=== PATIENT | female | born 1985 | race Hispanic/Latino ===

== ENCOUNTER 2018-01-27 00:20 | Inpatient (IN) | payer OTHER ==
[2018-01-27] VITALS (11 sets, daily range): BP systolic 77–100; BP diastolic 34–73
[~2018-01-27] VITALS: Ht 152.4 cm; Wt 77.8 kg
[~2018-01-27 00:20] MED LIST: MOTRIN600 MG PO; SKELAXIN800 MG PO
[2018-01-27 01:10] LABS: BASOPHIL (%) 0.1 % (0-1); EOSINOPHIL (%) 1.1 % (0-5); EOSINOPHIL COUNT 0.1 K/uL (0-0.3); HEMATOCRIT 27.3 % (36.0-46.0); IMMATURE GRANULOCYTE (%) 0.4 % (0.0-0.7); LYMPHOCYTE COUNT 4.5 K/uL (1.0-2.8); MCH 29.8 PG (29.0-34.0); MCHC 34.4 G/DL (30.0-36.0); MCV 86.7 FL (83-99); MONOCYTE (%) 6.2 % (3-12); MONOCYTE COUNT 0.7 K/uL (0-0.8); NEUTROPHIL (%) 51.2 % (45-76); NEUTROPHIL COUNT 5.7 K/uL (1.8-6.4); PLATELET COUNT 202 K/uL (156-360); WHITE BLOOD COUNT 11.1 K/uL (4.1-10.2)
[2018-01-27 01:12] LABS: HEMOGLOBIN 9.4 G/DL (11.9-15.5); RED BLOOD COUNT 3.15 M/uL (3.80-5.20)
[2018-01-27 01:16] LABS: INTER. NORMALIZED RATIO 1.1
[2018-01-27 01:22] LABS: CHLORIDE 108 mEq/L (99-109); POTASSIUM 3.7 mEq/L (3.7-5.4); SODIUM 138 mEq/L (136-147)
[2018-01-27 01:23] LABS: GLUCOSE 119 mg/dL (70-99)
[2018-01-27 01:27] LABS: CREATININE 0.6 mg/dL (0.6-1.3); GFR ESTIMATE (CALCULATED) > 59 mL/min/
[2018-01-27 01:28] LABS: UREA NITROGEN (BUN) 9 mg/dL (9-23)
[2018-01-27 01:32] LABS: TROP-I INTERPRETATION NEGATIVE; TROPONIN-I < 0.01 ng/mL (0.0-0.30)
[2018-01-27 03:08] LABS: APPEARANCE SL.HAZY ((CLEAR)); BILIRUBIN NEGATIVE; BLOOD MODERATE; COLOR RED ((YELLOW)); GLUCOSE (STRIP) 50; KETONES NEGATIVE; LEUKOCYTES MODERATE; NITRITE NEGATIVE; PROTEIN (STRIP) 100; SPECIFIC GRAVITY 1.006 (1.000-1.030); UROBILINOGEN 0.2 MG/DL (0.2-1.0)
[2018-01-27 03:20] LABS: EPITHELIAL CELLS NONE SEEN /HPF; MUCUS NONE SEEN /LPF; RED BLOOD CELLS TNTC /HPF (0-5)
[2018-01-27 03:21] LABS: BACTERIA NONE SEEN /HPF; UCUL ADDED? YES
[2018-01-27 03:27] LABS: BASOPHIL (%) 0.2 % (0-1); EOSINOPHIL (%) 0.3 % (0-5); HEMATOCRIT 24.5 % (36.0-46.0); HEMOGLOBIN 8.4 G/DL (11.9-15.5); IMMATURE GRANULOCYTE (%) 0.4 % (0.0-0.7); LYMPHOCYTE (%) 25.4 % (15-42); LYMPHOCYTE COUNT 3.3 K/uL (1.0-2.8); MCH 29.6 PG (29.0-34.0); MCHC 34.3 G/DL (30.0-36.0); MCV 86.3 FL (83-99); MONOCYTE (%) 3.5 % (3-12); MONOCYTE COUNT 0.5 K/uL (0-0.8); NEUTROPHIL (%) 70.2 % (45-76); PLATELET COUNT 192 K/uL (156-360); RED BLOOD COUNT 2.84 M/uL (3.80-5.20); WHITE BLOOD COUNT 12.9 K/uL (4.1-10.2)
[2018-01-27] MEDS ORDERED: MOTRIN IB200 MG PO (07:23)
[2018-01-27 11:37] LABS: HEMATOCRIT 27.6 % (36.0-46.0); HEMOGLOBIN 9.4 G/DL (11.9-15.5); MCH 29.7 PG (29.0-34.0); MCHC 34.1 G/DL (30.0-36.0); MCV 87.1 FL (83-99); PLATELET COUNT 168 K/uL (156-360); RBC DIS.WIDTH-CV 13.6 % (11.8-14.6); RBC DIS.WIDTH-SD 43.5 % (39-53); RED BLOOD COUNT 3.17 M/uL (3.80-5.20); WHITE BLOOD COUNT 8.8 K/uL (4.1-10.2)
[2018-01-28] VITALS (13 sets, daily range): BP systolic 82–99; BP diastolic 41–57
[2018-01-28 00:23] LABS: HEMATOCRIT 21.6 % (36.0-46.0); HEMOGLOBIN 7.6 G/DL (11.9-15.5); MCV 86.1 FL (83-99)
[2018-01-28 12:34] LABS: HEMATOCRIT 29.9 % (36.0-46.0); MCV 84.9 FL (83-99)
[2018-01-28 14:00] LABS: HEMOGLOBIN 10.1 G/DL (11.9-15.5)
[2018-01-28 17:51] LABS: HEMATOCRIT 32.1 % (36.0-46.0); MCV 85.4 FL (83-99)
[2018-01-29 00:30] LABS: HEMATOCRIT 27.3 % (36.0-46.0); HEMOGLOBIN 9.6 G/DL (11.9-15.5)
[2018-01-29 00:35] VITALS: BP 83/52
[2018-01-29 04:55] VITALS: BP 88/60
[2018-01-29 05:55] LABS: HEMATOCRIT 30.9 % (36.0-46.0); HEMOGLOBIN 10.4 G/DL (11.9-15.5); MCV 85.1 FL (83-99)
[2018-01-29 07:45] VITALS: BP 85/50
[2018-01-29] MEDS ORDERED: ENDOCET 5-3251 EACH PO (09:18)
[2018-01-29] MEDS ORDERED: IBUPROFEN800 MG PO (09:18)
[2018-01-29] MEDS ORDERED: IRON325 M1 PO (09:22)
[2018-01-29 11:31] VITALS: BP 98/57
== END 2018-01-29 12:37 | disposition home or self-care (01) | DRG 982 ==
LOC: EME 00:20 → EDOF 06:27 → 4EAST 06:27 → ENRESERV 06:42 → CANRESERV 06:42 → ENRESERV 06:43 → 4EAST 16:12
PROVIDERS: Emergency Medicine; Internal Medicine; Obstetrics & Gynecology
PROC: 10D Obstetrics, Pregnancy, Extraction (ICD-10-PCS; principal; 2018-01-27)
PROC: 30233N1 Transfusion of Nonautologous Red Blood Cells into Peripheral Vein, Percutaneous Approach (ICD-10-PCS; 2018-01-27)
DX: I95.9 Hypotension, unspecified (principal); D62 Acute posthemorrhagic anemia; O03.4 Incomplete spontaneous abortion without complication; Z3A.08 8 weeks gestation of pregnancy; E66.9 Obesity, unspecified; O99.211 Obesity complicating pregnancy, first trimester; Z68.33 Body mass index [BMI] 33.0-33.9, adult; O34.81 Maternal care for other abnormalities of pelvic organs, first trimester; N83.202 Unspecified ovarian cyst, left side; R93.8 Abnormal findings on diagnostic imaging of other specified body structures
CPT/HCPCS: 70450; 74174; 76856; 80048; 81003; 83605; 84484; 85014; 85018; 85025; 85025 91; 85027; 85610; 86850; 86900; 86901; 86920; 87086; 88305; 93005; 99281; 99285; G0378; J1050; J1170; J1885; J2210; J2250; J2405; J3010; J7030; J7120; P9016